=== PATIENT | female | born 1955 | race Caucasian/White ===

== ENCOUNTER 2020-07-11 11:53 | Emergency (ER) | payer BC ==
[2020-07-11] MEDS ORDERED: Ativan 2 MG/1 ML VIAL IV ONE (12:09)
[2020-07-11] MEDS ORDERED: VASOTEC I.V. 2.5 MG IV ONE ×2 (12:09→12:19)
[2020-07-11] MEDS ORDERED: Sodium Chloride 0.9% 1000 ML 1,000 ML IV SCH (12:15)
[2020-07-11] MEDS ORDERED: Ativan 2 MG/1 ML VIAL ONE (12:19)
[2020-07-11] MEDS ORDERED: Sodium Chloride 0.9% 1000 ML 1,000 ML ONE (12:19)
--- NOTE | 2020-07-11 12:38 | ERPHSYRPT ---
- History of Present Illness Time Seen by Provider: 07/11/20 12:37 Source: patient, family Exam Limitations: no limitations Patient Subjective Stated Complaint: HTN Triage Nursing Assessment: Patient ambulated back to ED and transferred self to bed. Patient A+O 3. Patient's skin pink, warm and dry. Patient complains of HTN. Patient states she has been feeling "off" for about one week. Patient states she has been monitoring her blood pressure and it has been high. Patient states this morning her blood pressure has been the highest today 175/108. Patient denies pain or discomfort. Patient's lungs clear a/p stef. No edema. Heart tones audible. Physician History: Patient complains of HTN. Patient states she has been feeling "off" for about one week. Patient states she has been monitoring her blood pressure and it has been high. Patient states this morning her blood pressure has been the highest today 175/108. Patient denies pain or discomfort Timing/Duration: day(s) Activities at Onset: none Severity of Pain-Current: none Modifying Factors: Improves With: nothing Nitro Today/Relief: no nitro taken today Aspirin Treatment Today: no aspirin today Associated Symptoms: denies symptoms Allergies/Adverse Reactions: No Known Drug Allergies Allergy (Unverified 07/11/20 12:00) Hx Influenza Vaccination/Date Given: No Hx Pneumococcal Vaccination/Date Given: No Immunizations Up to Date: Yes Travel Risk - International Travel Have you traveled outside of the country in past 3 weeks: No - Coronavirus Screening Are you exhibiting any of the following symptoms?: No Close contact with a COVID-19 positive Pt in past 14-21 Days: No - Review of Systems Constitutional: No Fever, No Chills Eyes: No Symptoms Ears, Nose, & Throat: No Symptoms Respiratory: No Cough, No Dyspnea Cardiac: No Chest Pain, No Edema, No Syncope Abdominal/Gastrointestinal: No Abdominal Pain, No Nausea, No Vomiting, No Diarrhea Genitourinary Symptoms: No Dysuria Musculoskeletal: No Back Pain, No Neck Pain Skin: No Rash Neurological: No Dizziness, No Focal Weakness, No Sensory Changes Psychological: No Symptoms Endocrine: No Symptoms All Other Systems: Reviewed and Negative - Past Medical History Pertinent Past Medical History: No Neurological History: No Pertinent History ENT History: No Pertinent History Cardiac History: No Pertinent History Respiratory History: No Pertinent History Endocrine Medical History: No Pertinent History Musculoskeletal History: No Pertinent History GI Medical History: No Pertinent History History: No Pertinent History Psycho-Social History: No Pertinent History Female Reproductive Disorders: No Pertinent History - Past Surgical History Past Surgical History: No Neuro Surgical History: No Pertinent History Cardiac: No Pertinent History Respiratory: No Pertinent History Gastrointestinal: No Pertinent History Genitourinary: No Pertinent History Musculoskeletal: No Pertinent History Female Surgical History: No Pertinent History - Social History Smoking Status: Former smoker Exposure to second hand smoke: No Drug Use: none Patient Lives Alone: No - Nursing Vital Signs Nursing Vital Signs: Initial Vital Signs Pulse Rate 91 H 07/11/20 12:03 Respiratory Rate 18 07/11/20 12:03 Blood Pressure 213/114 07/11/20 12:03 O2 Sat by Pulse Oximetry 97 07/11/20 12:03 Pain Scale Pain Intensity 0 - Physical Exam General Appearance: no apparent distress, alert Eye Exam: PERRL/EOMI, eyes nml inspection Ears, Nose, Throat Exam: normal ENT inspection, moist mucous membranes Neck Exam: normal inspection, non-tender, supple Respiratory Exam: normal breath sounds, lungs clear, No respiratory distress Cardiovascular Exam: regular rate/rhythm, normal heart sounds, No edema Gastrointestinal/Abdomen Exam: soft, No tenderness, No mass Back Exam: normal inspection, No CVA tenderness, No vertebral tenderness Extremity Exam: normal inspection, normal range of motion Neurologic Exam: alert, oriented x 3, cooperative, normal mood/affect, nml cereb ellar function, sensation nml, No motor deficits Skin Exam: normal color, warm, dry Lymphatic Exam: No adenopathy SpO2: 97 - Course Nursing assessment & vital signs reviewed: Yes EKG Interpreted by Me: Sinus Rhythm - Radiology Exams Chest X-ray Interpretation: Reviewed by me, Negative Ordered Tests: Active Orders 24 hr Category Date Time Status Cleaner Touch Up Worker STAT Care 07/11/20 12:10 Completed EKG-ER Only STAT Care 07/11/20 12:09 Completed IV Insertion STAT Care 07/11/20 12:09 Completed Oxygen-ED Only Nasal Cannula 2 lpm Care 07/11/20 12:09 Completed CHEST 1 VIEW (PORTABLE) Stat Exams 07/11/20 12:23 Taken CBC W DIFF Stat Lab 07/11/20 12:09 Completed CMP Stat Lab 07/11/20 12:09 Completed NT PRO BNP Stat Lab 07/11/20 12:09 Completed TROPONIN Q3H Lab 07/11/20 12:15 Completed TROPONIN Q3H Lab 07/11/20 15:15 Ordered TROPONIN Q3H Lab 07/11/20 18:15 Ordered TROPONIN Q3H Lab 07/11/20 21:15 Ordered Medication Summary Discontinued Medications Generic Name Dose Route Start Last Admin Trade Name Freq PRN Reason Stop Dose Admin Enalaprilat 2.5 mg 07/11/20 12:09 07/11/20 12:23 Vasotec I.V. 2.5 Mg IV 07/11/20 12:10 2.5 mg STAT ONE Administration Enalaprilat Confirm 07/11/20 12:19 Vasotec I.V. 2.5 Mg Administered 07/11/20 12:20 Dose 2.5 mg IV .STK-MED ONE Sodium Chloride 1,000 mls @ 50 mls/hr 07/11/20 12:15 07/11/20 12:20 Sodium Chloride 0.9% 1000 Ml IV 08/10/20 12:14 50 mls/hr .Q20H ANIBAL Administration Sodium Chloride Confirm 07/11/20 12:19 Sodium Chloride 0.9% 1000 Ml Administered 07/11/20 12:20 Dose 1,000 mls @ ud .ROUTE .STK-MED ONE Lorazepam 1 mg 07/11/20 12:09 07/11/20 12:23 Ativan 2 Mg/1 Ml Vial IV 07/11/20 12:10 1 mg STAT ONE Administration Lorazepam Confirm 07/11/20 12:19 Ativan 2 Mg/1 Ml Vial Administered 07/11/20 12:20 Dose 2 mg .ROUTE .STK-MED ONE Lab/Rad Data: Laboratory Result Diagrams 07/11/20 12:09 07/11/20 12:09 Laboratory Results 07/11/20 07/11/20 07/11/20 Range/Units 12:15 12:09 12:09 WBC 4.9 (4.0-10.5) K/mm3 RBC 4.80 (4.1-5.4) M/mm3 Hgb 13.9 (12.0-16.0) gm/dl Hct 43.3 (35-47) % MCV 90.2 (78-100) fl MCH 29.0 (26-32) pg MCHC 32.1 (32-36) g/dl RDW 14.2 H (11.5-14.0) % Plt Count 148 L (150-450) K/mm3 MPV 10.8 (7.5-11.0) fl Gran % 56.7 (36.0-66.0) % Eos # (Auto) 0.02 (0-0.5) Absolute Lymphs (auto) 1.60 (1.0-4.6) Absolute Monos (auto) 0.48 (0.0-1.3) Lymphocytes % 32.7 (24.0-44.0) % Monocytes % 9.8 (0.0-12.0) % Eosinophils % 0.4 (0.00-5.0) % Basophils % 0.4 (0.0-0.4) % Absolute Granulocytes 2.77 (1.4-6.9) Basophils # 0.02 (0-0.4) Sodium 138 (137-145) mmol/L Potassium 3.8 (3.5-5.1) mmol/L Chloride 109 H (98-107) mmol/L Carbon Dioxide 23 (22-30) mmol/L Anion Gap 10.0 (5-15) MEQ/L BUN 12 (7-17) mg/dL Creatinine 0.79 (0.52-1.04) mg/dL Estimated GFR > 60.0 ML/MIN Glucose 117 H (74-106) mg/dL Calcium 9.3 (8.4-10.2) mg/dL Total Bilirubin 0.40 (0.2-1.3) mg/dL AST 48 H (14-36) U/L ALT 12 (0-35) U/L Alkaline Phosphatase 106 (38-126) U/L Troponin I < 0.012 (0.000-0.034) ng/mL NT-Pro-B Natriuret Pep 334 (0-900) pg/mL Serum Total Protein 7.0 (6.3-8.2) g/dL Albumin 4.1 (3.5-5.0) g/dL - Progress Progress: improved Air Movement: good Blood Culture(s) Obtained: No Antibiotics given: No Counseled pt/family regarding: lab results, diagnosis, need for follow-up, rad results, smoking cessation - Departure Departure Disposition: Home Clinical Impression: Asymptomatic hypertensive urgency Condition: Stable Critical Care Time: Yes Critical Care Time(excluding separately billable procedures): Critical 30-74 mins Referrals: SVETA REES MD [Primary Care Provider] - Instructions: Malignant Hypertension (DC) Additional Instructions: Discharge/Care Plan MAE CHEW was seen on 07/11/20 in the Emergency Room. The patient was counseled regarding Diagnosis,Lab results, Imaging studies, need for follow up and when to return to the Emergency Room. Prescriptions given: Discharge Note I have spoken with the patient and/or caregivers. I have explained the patient's condition, diagnosis and treatment plan based on the information available to me at this time. I have answered the patient's and/or caregiver's questions and addressed any concerns. The patient and/or caregivers have as good understanding of the patient's diagnosis, condition and treatment plan as can be expected at this point. The vital signs have been stable. The patient's condition is stable and appropriate for discharge from the emergency department. The patient will pursue further outpatient evaluation with the primary care physician or other designated or consulting physician as outlined in the discharge instructions. The patient and/or caregivers are agreeable to this plan of care and follow-up instructions have been explained in detail. The patient and/or caregivers have received these instruction. The patient/and or caregivers are aware that any significant change in condition or worsening of symptoms should prompt an immediate return to this or the closest emergency department or call 911. MAE CHEW was seen on 07/11/20 n the Emergency Room. At that time you were treated for an emergent condition, during your visit Laboratory, Radiology and/or other procedures may have been ordered. It is very important that you follow-up with your Primary Care Physician SVETA REES within the next 24-48 hours to review your Emergency Room visit and the final results of testing that was ordered. Some test results such as Urine Cultures, Blood Cultures, and other cultures if ordered will not be finalized for 24-48 hours. If you do not have a Primary Care Provider please call the medical records department at [phone] ext [phone] to obtain a copy of your results or you may sign into our patient portal to obtain these results by visiting us @ [email or web address] and completing the following steps: 1. Click on the Patient Portal link 2. Click the Patient Self Enrollment Link to complete the enrollment form and entering your 3. Once the enrollment form is completed you will receive an email with a temporary ID and password at the email address you provided. 4. Next choose a user name and password. Your user name must be at least 4 characters long and your password must be at least 4 characters long. 5. Choose a security question from the list and provide your answer to the question. If you already have signed into the Health Portal you may access your Health Care Information 16/04 by the following steps: 1. Login to our website @ [email or web address] 2. Enter your original user name and password. FAQS The [facility] Health Portal is an online tool that contains your Lab Results, Radiology Reports, Visit History, Discharge Instructions and Health Summary Lab and Radiology Results will not be available for 72 hours on the portal. The Portal is a secure site, passwords are encryted and URLs are re-written so they cannot be copied and pasted. You and authorized family members are the only ones who can access your Portal. Also there is a timeout feature that protects your information if you leave the Portal page open. If you have technical difficulty please use the Contact Us link on the page this will allow you to submit any questions you have regarding the Portal or you may contact the Medical Record Department at [phone]. Prescriptions: Lisinopril/Hydrochlorothiazide [Lisinopril-Hctz 20-12.5 mg Tab] 1 each PO DAILY #30 tablet
[2020-07-11 12:55] LABS: Absolute Neutrophil Ct (ANC) 2.77 (1.4-6.9); BASOPHIL % 0.4 % (0.0-0.4); Basophil (Absolute #) 0.02 (0-0.4); Eosinophil % 0.4 % (0.00-5.0); Eosinophil (Absolute #) 0.02 (0-0.5); Hematocrit 43.3 % (35-47); Hemoglobin 13.9 gm/dl (12.0-16.0); Lymphocytes % 32.7 % (24.0-44.0); Mean Cell Volume 90.2 fl (78-100); Mean Corpuscular Hgb Concent. 32.1 g/dl (32-36); Mean Platelet Volume 10.8 fl (7.5-11.0); Monocyte (Absolute #) 0.48 (0.0-1.3); Monocytes % 9.8 % (0.0-12.0); Neutrophil % 56.7 % (36.0-66.0); Platelet Count 148 K/mm3 (150-450); Red Cell Distribution Width 14.2 % (11.5-14.0); White Blood Count 4.9 K/mm3 (4.0-10.5)
[2020-07-11 13:15] LABS: ALBUMIN 4.1 g/dL (3.5-5.0); ALKALINE PHOSPHATASE 106 U/L (38-126); BLOOD UREA NITROGEN 12 mg/dL (7-17); CHLORIDE 109 mmol/L (98-107); Calcium 9.3 mg/dL (8.4-10.2); Carbon Dioxide 23 mmol/L (22-30); Creatinine 1 0.79 mg/dL (0.52-1.04); EST GLOMERULAR FILTRATION RATE > 60.0 ML/MIN; Glucose 117 mg/dL (74-106); NT PRO BNP 334 pg/mL (0-900); Potassium 3.8 mmol/L (3.5-5.1); SGOT/AST 48 U/L (14-36); SGPT/ALT 12 U/L (0-35); SODIUM 138 mmol/L (137-145)
[2020-07-11 13:43] VITALS: BP 130/92; PULSE 82
[2020-07-11 14:20] VITALS: O2SAT 97
--- NOTE | 2020-07-11 20:34 | XRAY ---
Indication: Weakness. Hypertension. Comparison: None Portable chest hyperinflated with tiny calcified granulomas bilaterally. No focal infiltrate, consolidation, or large effusion. Heart is not enlarged. Bony thorax intact. Impression: Nonacute hyperinflated chest with old granulomatous disease.
== END 2020-07-11 13:56 | disposition home or self-care (01) ==
LOC: ED 11:53
DX: I16.0 Hypertensive urgency (principal)
CPT/HCPCS: 36000; 36415; 71045; 80053; 83880; 84484; 85025; 93005; 93041; 96360; 96374; 96375; 99284; 99291; J2060

== ENCOUNTER 2020-11-13 17:40 | Emergency (ER) | payer BC ==
[2020-11-13] MEDS ORDERED: NORVASC 5 MG PO ONE (18:07)
[2020-11-13] MEDS ORDERED: Catapres 0.1 MG PO ONE (18:07)
[2020-11-13] MEDS ORDERED: NORVASC 5 MG ONE ×2 (18:13→19:38)
[2020-11-13] MEDS ORDERED: Catapres 0.1 MG ONE (18:13)
[2020-11-13 18:16] LABS: Absolute Neutrophil Ct (ANC) 6.29 (1.4-6.9); BASOPHIL % 0.7 % (0.0-0.4); Basophil (Absolute #) 0.06 (0-0.4); Eosinophil % 1.7 % (0.00-5.0); Eosinophil (Absolute #) 0.16 (0-0.5); Hematocrit 43.2 % (35-47); Hemoglobin 13.5 gm/dl (12.0-16.0); Lymphocyte (Absolute #) 2.19 (1.0-4.6); Lymphocytes % 23.8 % (24.0-44.0); Mean Cell Volume 92.3 fl (78-100); Mean Corpuscular Hemoglobin 28.8 pg (26-32); Mean Corpuscular Hgb Concent. 31.3 g/dl (32-36); Mean Platelet Volume 10.5 fl (7.5-11.0); Monocyte (Absolute #) 0.49 (0.0-1.3); Monocytes % 5.3 % (0.0-12.0); Neutrophil % 68.5 % (36.0-66.0); Platelet Count 244 K/mm3 (150-450); Red Blood Count 4.68 M/mm3 (4.1-5.4); Red Cell Distribution Width 13.7 % (11.5-14.0); White Blood Count 9.2 K/mm3 (4.0-10.5)
[2020-11-13 18:21] LABS: Appearance SLIGHTLY CLOUDY (CLEAR); Bacteria RARE /HPF (NEGATIVE); Bilirubin NEGATIVE (NEGATIVE); Blood SMALL Ery/ul (0-5); Epithelial Cells RARE /HPF (FEW); Glucose NEGATIVE (NEGATIVE); Ketones NEGATIVE (NEGATIVE); Leukocyte Esterase LARGE (NEGATIVE); Nitrite NEGATIVE (NEGATIVE); Protein,Urine Dip NEGATIVE (Negative); Specific Gravity 1.002 (1.005-1.025); Urobilinogen NEGATIVE mg/dL (0-1); WBC 51-100 /HPF (0-5)
[2020-11-13 18:32] LABS: ALBUMIN 4.4 g/dL (3.5-5.0); ALKALINE PHOSPHATASE 85 U/L (38-126); AMYLASE 95 U/L (30-110); ANION GAP 12.3 MEQ/L (5-15); BLOOD UREA NITROGEN 12 mg/dL (7-17); CHLORIDE 108 mmol/L (98-107); CK-Creatinine Phosphokinase 44 U/L (30-135); Carbon Dioxide 22 mmol/L (22-30); Creatinine 1 0.94 mg/dL (0.52-1.04); EST GLOMERULAR FILTRATION RATE > 60.0 ML/MIN; Glucose 109 mg/dL (74-106); LIPASE 254 U/L (23-300); NT PRO BNP 250 pg/mL (0-900); Potassium 4.1 mmol/L (3.5-5.1); SGOT/AST 34 U/L (14-36); SGPT/ALT 10 U/L (0-35); SODIUM 139 mmol/L (137-145); Total Protein 7.2 g/dL (6.3-8.2)
[2020-11-13] MEDS ORDERED: ROCEPHIN 1 Gm-D5w 50 ml Bag** 1 G/50 ML IVPB IV STA (18:43)
[2020-11-13] MEDS ORDERED: ROCEPHIN 1 Gm-D5w 50 ml Bag** 1 G/50 ML IVPB IV ONE (18:45)
--- NOTE | 2020-11-13 19:25 | ERPHSYRPT ---
- History of Present Illness Time Seen by Provider: 11/13/20 18:00 Source: patient Exam Limitations: no limitations Patient Subjective Stated Complaint: Pt has not been feeling "normal" today, BP has been increasing all day and she has doubled her bp meds Triage Nursing Assessment: Pt brought to the ER by her , hypertensive, no other health issues, denies headache, denies any pain, pulses normal, skin n/w/d Physician History: Patient is a 65-year-old white female with a long history of hypertension who presents with elevated blood pressure readings for approximately 24 hours. Her initial blood pressure problems started in June of last year when she came into the ER and was found to have extremely elevated pressures she was started on lisinopril and had done fairly well although her blood pressure has fluctuated according to her home record over a fairly wide range. She denies any headache chest pain shortness of breath or any other problems no edema no change in urinary output. No change in body weight. Timing/Duration: day(s) (2) Activities at Onset: none Severity of Pain-Max: none Severity of Pain-Current: none Modifying Factors: Improves With: nothing Nitro Today/Relief: no nitro taken today Aspirin Treatment Today: no aspirin today Associated Symptoms: denies symptoms Allergies/Adverse Reactions: No Known Drug Allergies Allergy (Verified 11/13/20 18:10) Home Medications: Lisinopril 20 mg [Zestril 20 MG] 20 mg PO DAILY 11/13/20 [History] Hx Influenza Vaccination/Date Given: No Hx Pneumococcal Vaccination/Date Given: No Travel Risk - International Travel Have you traveled outside of the country in past 3 weeks: No - Coronavirus Screening Are you exhibiting any of the following symptoms?: No Close contact with a COVID-19 positive Pt in past 14-21 Days: No - Review of Systems Constitutional: No Fever, No Chills Eyes: No Symptoms Ears, Nose, & Throat: No Symptoms Respiratory: No Cough, No Dyspnea Cardiac: No Chest Pain, No Edema, No Syncope Abdominal/Gastrointestinal: No Abdominal Pain, No Nausea, No Vomiting, No Diarrhea Genitourinary Symptoms: No Dysuria Musculoskeletal: No Back Pain, No Neck Pain Skin: No Rash Neurological: No Dizziness, No Focal Weakness, No Sensory Changes Psychological: No Symptoms Endocrine: No Symptoms All Other Systems: Reviewed and Negative - Past Medical History Pertinent Past Medical History: Yes Neurological History: No Pertinent History ENT History: No Pertinent History Cardiac History: No Pertinent History, Hypertension Respiratory History: No Pertinent History Endocrine Medical History: No Pertinent History Musculoskeletal History: No Pertinent History GI Medical History: No Pertinent History History: No Pertinent History Psycho-Social History: No Pertinent History Female Reproductive Disorders: No Pertinent History - Past Surgical History Past Surgical History: No Neuro Surgical History: No Pertinent History Cardiac: No Pertinent History Respiratory: No Pertinent History Gastrointestinal: No Pertinent History Genitourinary: No Pertinent History Musculoskeletal: No Pertinent History Female Surgical History: No Pertinent History - Social History Smoking Status: Current some day smoker Exposure to second hand smoke: No Drug Use: none Patient Lives Alone: No - Nursing Vital Signs Nursing Vital Signs: Initial Vital Signs Temperature 98.0 F 11/13/20 17:50 Pulse Rate 72 11/13/20 17:50 Respiratory Rate 13 11/13/20 17:50 Blood Pressure 204/108 11/13/20 17:50 O2 Sat by Pulse Oximetry 98 11/13/20 17:50 Pain Scale Pain Intensity 0 - Physical Exam General Appearance: no apparent distress, alert Eye Exam: PERRL/EOMI, eyes nml inspection Ears, Nose, Throat Exam: normal ENT inspection, moist mucous membranes Neck Exam: normal inspection, non-tender, supple Respiratory Exam: normal breath sounds, lungs clear, No respiratory distress Cardiovascular Exam: regular rate/rhythm, normal heart sounds, No edema Gastrointestinal/Abdomen Exam: soft, No tenderness, No mass Back Exam: normal inspection, No CVA tenderness, No vertebral tenderness Extremity Exam: normal inspection, normal range of motion Neurologic Exam: alert, oriented x 3, cooperative, normal mood/affect, nml cerebellar function, sensation nml, No motor deficits Skin Exam: normal color, warm, dry Lymphatic Exam: No adenopathy SpO2: 95 - Course Nursing assessment & vital signs reviewed: Yes EKG Interpreted by Me: RATE, NORMAL AXIS, NORMAL INTERVALS, Non-specific ST Changes - Radiology Exams Chest X-ray Interpretation: Interpreted by me, Negative Ordered Tests: Active Orders 24 hr Category Date Time Status EKG-ER Only STAT Care 11/13/20 18:08 Active CHEST 1 VIEW (PORTABLE) Stat Exams 11/13/20 18:08 Taken AMYLASE Stat Lab 11/13/20 18:12 Completed CBC W DIFF Stat Lab 11/13/20 18:12 Completed CK-Creatinine Phosphokinase Stat Lab 11/13/20 18:12 Completed CMP Stat Lab 11/13/20 18:12 Completed CULTURE,URINE Stat Lab 11/13/20 18:10 Received LIPASE Stat Lab 11/13/20 18:12 Completed Lactic Acid Stat Lab 11/13/20 18:08 Completed MAGNESIUM Stat Lab 11/13/20 18:12 Completed NT PRO BNP Stat Lab 11/13/20 18:12 Completed TROPONIN Q3H Lab 11/13/20 18:12 Completed TROPONIN Q3H Lab 11/13/20 21:15 Ordered TROPONIN Q3H Lab 11/14/20 00:15 Ordered TROPONIN Q3H Lab 11/14/20 03:15 Ordered TROPONIN Q3H Lab 11/14/20 06:15 Ordered UA W/RFX UR CULTURE Stat Lab 11/13/20 18:10 Completed Medication Summary Discontinued Medications Generic Name Dose Route Start Last Admin Trade Name Freq PRN Reason Stop Dose Admin Amlodipine Besylate 5 mg 11/13/20 18:07 11/13/20 18:14 Norvasc 5 Mg PO 11/13/20 18:08 5 mg STAT ONE Administration Amlodipine Besylate Confirm 11/13/20 18:13 Norvasc 5 Mg Administered 11/13/20 18:14 Dose 5 mg .ROUTE .STK-MED ONE Clonidine 0.1 mg 11/13/20 18:07 11/13/20 18:14 Catapres 0.1 Mg PO 11/13/20 18:08 0.1 mg STAT ONE Administration Clonidine Confirm 11/13/20 18:13 Catapres 0.1 Mg Administered 11/13/20 18:14 Dose 0.1 mg .ROUTE .STK-MED ONE Ceftriaxone Sodium/Dextrose 1 g in 50 mls @ 100 mls/hr 11/13/20 18:43 11/13/20 18:46 Rocephin 1 Gm-D5w 50 Ml Bag IV 11/13/20 19:12 100 ml/hr STAT STA 100 mls/hr Administration Ceftriaxone Sodium/Dextrose Confirm 11/13/20 18:45 Rocephin 1 Gm-D5w 50 Ml Bag Administered 11/13/20 18:46 Dose 1 g in 50 mls @ ud IV .STK-MED ONE Lab/Rad Data: Laboratory Result Diagrams 11/13/20 18:12 11/13/20 18:12 Laboratory Results 11/13/20 11/13/20 11/13/20 Range/Units 18:12 18:12 18:12 WBC 9.2 (4.0-10.5) K/mm3 RBC 4.68 (4.1-5.4) M/mm3 Hgb 13.5 (12.0-16.0) gm/dl Hct 43.2 (35-47) % MCV 92.3 (78-100) fl MCH 28.8 (26-32) pg MCHC 31.3 L (32-36) g/dl RDW 13.7 (11.5-14.0) % Plt Count 244 (150-450) K/mm3 MPV 10.5 (7.5-11.0) fl Gran % 68.5 H (36.0-66.0) % Eos # (Auto) 0.16 (0-0.5) Absolute Lymphs (auto) 2.19 (1.0-4.6) Absolute Monos (auto) 0.49 (0.0-1.3) Lymphocytes % 23.8 L (24.0-44.0) % Monocytes % 5.3 (0.0-12.0) % Eosinophils % 1.7 (0.00-5.0) % Basophils % 0.7 (0.0-0.4) % Absolute Granulocytes 6.29 (1.4-6.9) Basophils # 0.06 (0-0.4) Sodium 139 (137-145) mmol/L Potassium 4.1 (3.5-5.1) mmol/L Chloride 108 H (98-107) mmol/L Carbon Dioxide 22 (22-30) mmol/L Anion Gap 12.3 (5-15) MEQ/L BUN 12 (7-17) mg/dL Creatinine 0.94 (0.52-1.04) mg/dL Estimated GFR > 60.0 ML/MIN Glucose 109 H (74-106) mg/dL Lactic Acid (0.4-2.0) Calcium 10.0 (8.4-10.2) mg/dL Magnesium 2.0 (1.6-2.3) mg/dL Total Bilirubin 0.30 (0.2-1.3) mg/dL AST 34 (14-36) U/L ALT 10 (0-35) U/L Alkaline Phosphatase 85 (38-126) U/L Creatine Kinase 44 (30-135) U/L Troponin I < 0.012 (0.000-0.034) ng/mL NT-Pro-B Natriuret Pep 250 (0-900) pg/mL Serum Total Protein 7.2 (6.3-8.2) g/dL Albumin 4.4 (3.5-5.0) g/dL Amylase 95 (30-110) U/L Lipase 254 (23-300) U/L Urine Color (YELLOW) Urine Appearance (CLEAR) Urine pH (5-6) Ur Specific [place] (1.005-1.025) Urine Protein (Negative) Urine Ketones (NEGATIVE) Urine Blood (0-5) Ethan/ul Urine Nitrite (NEGATIVE) Urine Bilirubin (NEGATIVE) Urine Urobilinogen (0-1) mg/dL Ur Leukocyte Esterase (NEGATIVE) Urine WBC (Auto) (0-5) /HPF Urine RBC (Auto) (0-2) /HPF U Epithel Cells (Auto) (FEW) /HPF Urine Bacteria (Auto) (NEGATIVE) /HPF Urine Culture Reflexed (NO) Urine Glucose (NEGATIVE) mg/dL 11/13/20 11/13/20 Range/Units 18:10 18:08 WBC (4.0-10.5) K/mm3 RBC (4.1-5.4) M/mm3 Hgb (12.0-16.0) gm/dl Hct (35-47) % MCV (78-100) fl MCH (26-32) pg MCHC (32-36) g/dl RDW (11.5-14.0) % Plt Count (150-450) K/mm3 MPV (7.5-11.0) fl Gran % (36.0-66.0) % Eos # (Auto) (0-0.5) Absolute Lymphs (auto) (1.0-4.6) Absolute Monos (auto) (0.0-1.3) Lymphocytes % (24.0-44.0) % Monocytes % (0.0-12.0) % Eosinophils % (0.00-5.0) % Basophils % (0.0-0.4) % Absolute Granulocytes (1.4-6.9) Basophils # (0-0.4) Sodium (137-145) mmol/L Potassium (3.5-5.1) mmol/L Chloride (98-107) mmol/L Carbon Dioxide (22-30) mmol/L Anion Gap (5-15) MEQ/L BUN (7-17) mg/dL Creatinine (0.52-1.04) mg/dL Estimated GFR ML/MIN Glucose (74-106) mg/dL Lactic Acid 1.4 (0.4-2.0) Calcium (8.4-10.2) mg/dL Magnesium (1.6-2.3) mg/dL Total Bilirubin (0.2-1.3) mg/dL AST (14-36) U/L ALT (0-35) U/L Alkaline Phosphatase (38-126) U/L Creatine Kinase (30-135) U/L Troponin I (0.000-0.034) ng/mL NT-Pro-B Natriuret Pep (0-900) pg/mL Serum Total Protein (6.3-8.2) g/dL Albumin (3.5-5.0) g/dL Amylase (30-110) U/L Lipase (23-300) U/L Urine Color STRAW (YELLOW) Urine Appearance SLIGHTLY CLOUDY (CLEAR) Urine pH 6.0 (5-6) Ur Specific [place] 1.002 (1.005-1.025) Urine Protein NEGATIVE (Negative) Urine Ketones NEGATIVE (NEGATIVE) Urine Blood SMALL (0-5) Ethan/ul Urine Nitrite NEGATIVE (NEGATIVE) Urine Bilirubin NEGATIVE (NEGATIVE) Urine Urobilinogen NEGATIVE (0-1) mg/dL Ur Leukocyte Esterase LARGE (NEGATIVE) Urine WBC (Auto) 51-100 (0-5) /HPF Urine RBC (Auto) 3-5 (0-2) /HPF U Epithel Cells (Auto) RARE (FEW) /HPF Urine Bacteria (Auto) RARE (NEGATIVE) /HPF Urine Culture Reflexed YES (NO) Urine Glucose NEGATIVE (NEGATIVE) mg/dL - Progress Progress: improved Air Movement: good Blood Culture(s) Obtained: No Antibiotics given: No - Departure Departure Disposition: Home Clinical Impression: Asymptomatic hypertensive urgency, Urinary tract infection Condition: Stable Critical Care Time: No Referrals: SVETA REES MD [Primary Care Provider] - Instructions: Malignant Hypertension (DC) Prescriptions: Cephalexin Mh 500 mg [Keflex 500 mg] 500 mg PO TID #21 capsule Amlodipine Besylate 5 mg [Norvasc 5 mg] 10 mg PO DAILY 30 Days #30 tablet
[2020-11-13 19:36] VITALS: BP 148/96; PULSE 67; O2SAT 96
[2020-11-13] MEDS ORDERED: KEFLEX 500 MG ONE (19:38)
--- NOTE | 2020-11-13 19:42 | XRAY ---
Indication: Weakness. Comparison: July 11. Portable chest unchanged again hyperinflated with scattered tiny calcified granulomas bilaterally. Remaining heart and lungs unremarkable. Bony thorax intact. No new/acute findings.
[2020-11-14] MEDS ORDERED: KEFLEX 500 MG PO ONE (08:00)
[2020-11-14] MEDS ORDERED: NORVASC 5 MG PO SCH (10:00)
== END 2020-11-13 19:53 | disposition home or self-care (01) ==
LOC: ED 17:40
DX: I16.0 Hypertensive urgency (principal); N39.0 Urinary tract infection, site not specified; I10 Essential (primary) hypertension; Z79.899 Other long term (current) drug therapy
CPT/HCPCS: 36000; 36415; 71045; 80053; 81001; 82150; 82550; 83605; 83690; 83735; 83880; 84484; 85025; 87086; 93005; 99284; J0696; A9270-GY

== ENCOUNTER 2020-11-15 04:58 | Emergency (ER) | payer BC ==
[2020-11-15 05:27] LABS: Absolute Neutrophil Ct (ANC) 3.71 (1.4-6.9); BASOPHIL % 0.6 % (0.0-0.4); Basophil (Absolute #) 0.04 (0-0.4); Eosinophil % 3.3 % (0.00-5.0); Eosinophil (Absolute #) 0.22 (0-0.5); Hematocrit 44.5 % (35-47); Hemoglobin 13.8 gm/dl (12.0-16.0); Lymphocyte (Absolute #) 2.12 (1.0-4.6); Lymphocytes % 32.1 % (24.0-44.0); Mean Cell Volume 92.5 fl (78-100); Mean Corpuscular Hemoglobin 28.7 pg (26-32); Mean Platelet Volume 10.5 fl (7.5-11.0); Monocyte (Absolute #) 0.51 (0.0-1.3); Monocytes % 7.7 % (0.0-12.0); Neutrophil % 56.3 % (36.0-66.0); Platelet Count 233 K/mm3 (150-450); Red Blood Count 4.81 M/mm3 (4.1-5.4); Red Cell Distribution Width 13.7 % (11.5-14.0); White Blood Count 6.6 K/mm3 (4.0-10.5)
--- NOTE | 2020-11-15 05:31 | ERPHSYRPT ---
- History of Present Illness Source: patient Exam Limitations: no limitations Patient Subjective Stated Complaint: pt states she woke up this morning to use the restroom and just didn't feel right. pt states that she has chest tightness Triage Nursing Assessment: pt came into the er via wheelchair; pt is axo x4; pt is anxious; c/o chest tightness; pt states that she was here sunday for high blood pressure; pt states that she was started on amlopidine; pt states she has no chest pain but does have epigastric tightness; heart sound is clear; normal apical pulse of 86 bpm; normal radial pulses; normal pedal pulses; no edema present; clear lung sounds in all lobes; active bowel sounds in all quads; hypertensive Associated Symptoms: chest pain, No nausea, No vomiting, No shortness of breath, No cough, No chills Hx Tetanus, Diphtheria Vaccination/Date Given: No (unknown) Hx Influenza Vaccination/Date Given: No Hx Pneumococcal Vaccination/Date Given: No <JAYMIE OKEEFE - Last Filed: 11/15/20 06:54> <SAURABH CARDONA - Last Filed: 11/15/20 08:58> - History of Present Illness Time Seen by Provider: 11/15/20 05:05 Physician History: The patient is a 65-year-old female with a past medical history significant for hypertension and cigarette smoking presents with a chief complaint of hypertension and chest tightness. She states she awoke this morning around 2 AM and "did not feel right" and checked her blood pressure and was given systolic blood pressure readings in the 170s like she did this past Sunday when she came to the emergency department for her hypertension. She stated she started to feel chest tightness shortly afterwards then decided to come to the emergency department when her blood pressure reading come back down. Chest tightness was located around her epigastrum, non-radiating, and mild She reportedly was seen in the emergency department on November 13 and was started on Norvasc in conjunction with her lisinopril and was instructed to follow-up with her primary care provider. Her urine also appeared to show evidence of UTI and she was empirically started on Keflex. She denies shortness of breath, nausea, diaphoresis, or pain or jaw pain. She currently has no chest discomfort at this time. The patient has not taken her lisinopril or amlodipine this morning and is supposed to take it this morning upon awaking. (JAYMIE OKEEFE) Allergies/Adverse Reactions: No Known Drug Allergies Allergy (Verified 11/13/20 18:10) Home Medications: Lisinopril 20 mg [Zestril 20 MG] 20 mg PO DAILY 11/13/20 [History] Travel Risk - International Travel Have you traveled outside of the country in past 3 weeks: No - Coronavirus Screening Are you exhibiting any of the following symptoms?: No Close contact with a COVID-19 positive Pt in past 14-21 Days: No <JAYMIE OKEEFE - Last Filed: 11/15/20 06:54> - Review of Systems Constitutional: No Fever Eyes: No Symptoms Ears, Nose, & Throat: No Symptoms Respiratory: No Cough, No Cyanosis, No Dyspnea Cardiac: Chest Pain, Other (HTN) Abdominal/Gastrointestinal: No Abdominal Pain, No Nausea, No Vomiting Musculoskeletal: No Symptoms Skin: No Symptoms Neurological: No Symptoms, No Headache All Other Systems: Reviewed and Negative <JAYMIE OKEEFE - Last Filed: 11/15/20 06:54> - Past Medical History Pertinent Past Medical History: Yes Neurological History: No Pertinent History ENT History: No Pertinent History Cardiac History: No Pertinent History, Hypertension Respiratory History: No Pertinent History Endocrine Medical History: No Pertinent History Musculoskeletal History: No Pertinent History GI Medical History: No Pertinent History History: No Pertinent History Psycho-Social History: No Pertinent History Female Reproductive Disorders: No Pertinent History - Past Surgical History Past Surgical History: No Neuro Surgical History: No Pertinent History Cardiac: No Pertinent History Respiratory: No Pertinent History Gastrointestinal: No Pertinent History Genitourinary: No Pertinent History Musculoskeletal: No Pertinent History Female Surgical History: No Pertinent History - Social History Smoking Status: Current some day smoker Exposure to second hand smoke: No Drug Use: none Patient Lives Alone: No <JAYMIE OKEEFE - Last Filed: 11/15/20 06:54> - Physical Exam General Appearance: no apparent distress, alert Eye Exam: PERRL/EOMI Ears, Nose, Throat Exam: No pharyngeal erythema, No tonsillar exudate Neck Exam: normal inspection, supple Respiratory Exam: normal breath sounds, lungs clear, airway intact, No respiratory distress Cardiovascular Exam: regular rate/rhythm, normal heart sounds, normal peripheral pulses, capillary refill <2 sec, other (No asymmetic lower extremity calf tenderness, edema, or erythema to suggest DVT), No murmur, No friction rub, No gallop Gastrointestinal/Abdomen Exam: soft, No tenderness, No distention, No mass Pelvic Exam: not done Back Exam: normal inspection Extremity Exam: normal inspection Neurologic Exam: alert, oriented x 3, cooperative Skin Exam: normal color, warm, dry, No rash, No petechiae SpO2 Interpretation: normal SpO2: 96 O2 Delivery: Room Air <JAYMIE OKEEFE - Last Filed: 11/15/20 06:54> - Nursing Vital Signs Nursing Vital Signs: Initial Vital Signs Temperature 97.4 F 11/15/20 05:01 Pulse Rate 87 11/15/20 05:01 Respiratory Rate 11/15/20 05:01 Blood Pressure 171/100 11/15/20 05:01 O2 Sat by Pulse Oximetry 96 11/15/20 05:01 Pain Scale Pain Intensity 0 - Course Nursing assessment & vital signs reviewed: Yes EKG Interpreted by Me: RATE, Sinus Rhythm, NORMAL AXIS, NORMAL INTERVALS, Non- specific ST Changes, Other (Nonspecific T wave abnormalities noted in the anterior leads, [place] interval 176 ms, QRS duration 71 ms, QT/QTc 394/420 msNo evidence of STEMI, low voltage EKG, EKG is similar to appearance to EKG dated November 13, 2020.) - Radiology Exams Chest X-ray Interpretation: Interpreted by me, Negative (No acute cardiopulmonary process) <JAYMIE OKEEFE - Last Filed: 11/15/20 06:54> Ordered Tests: Active Orders 24 hr Category Date Time Status Scroll Saw Operator STAT Care 11/15/20 05:16 Active EKG-ER Only STAT Care 11/15/20 05:15 Active IV Insertion STAT Care 11/15/20 05:15 Active CHEST 2 VIEWS (PA AND LAT) Stat Exams 11/15/20 05:16 Completed BMP Stat Lab 11/15/20 05:25 Completed CBC W DIFF Stat Lab 11/15/20 05:25 Completed Hepatic Function Panel Stat Lab 11/15/20 05:25 Completed LIPASE Stat Lab 11/15/20 05:25 Completed TROPONIN Q3H Lab 11/15/20 05:25 Completed TROPONIN Q3H Lab 11/15/20 08:15 Completed TROPONIN Q3H Lab 11/15/20 11:30 Ordered TROPONIN Q3H Lab 11/15/20 14:30 Ordered TROPONIN Q3H Lab 11/15/20 17:30 Ordered Lab/Rad Data: Laboratory Result Diagrams 11/15/20 05:25 11/15/20 05:25 Laboratory Results 11/15/20 11/15/20 11/15/20 Range/Units 08:15 05:25 05:25 WBC (4.0-10.5) K/mm3 RBC (4.1-5.4) M/mm3 Hgb (12.0-16.0) gm/dl Hct (35-47) % MCV (78-100) fl MCH (26-32) pg MCHC (32-36) g/dl RDW (11.5-14.0) % Plt Count (150-450) K/mm3 MPV (7.5-11.0) fl Gran % (36.0-66.0) % Eos # (Auto) (0-0.5) Absolute Lymphs (auto) (1.0-4.6) Absolute Monos (auto) (0.0-1.3) Lymphocytes % (24.0-44.0) % Monocytes % (0.0-12.0) % Eosinophils % (0.00-5.0) % Basophils % (0.0-0.4) % Absolute Granulocytes (1.4-6.9) Basophils # (0-0.4) Sodium 139 (137-145) mmol/L Potassium 4.1 (3.5-5.1) mmol/L Chloride 108 H (98-107) mmol/L Carbon Dioxide 25 (22-30) mmol/L Anion Gap 10.7 (5-15) MEQ/L BUN 12 (7-17) mg/dL Creatinine 0.95 (0.52-1.04) mg/dL Estimated GFR > 60.0 ML/MIN Glucose 95 (74-106) mg/dL Calcium 10.0 (8.4-10.2) mg/dL Total Bilirubin 0.60 (0.2-1.3) mg/dL Direct Bilirubin 0 (0.0-0.4) mg/dL AST 34 (14-36) U/L ALT 8 (0-35) U/L Alkaline Phosphatase 88 (38-126) U/L Troponin I < 0.012 < 0.012 (0.000-0.034) ng/mL Serum Total Protein 7.3 (6.3-8.2) g/dL Albumin 4.3 (3.5-5.0) g/dL Lipase 250 (23-300) U/L 11/15/20 Range/Units 05:25 WBC 6.6 (4.0-10.5) K/mm3 RBC 4.81 (4.1-5.4) M/mm3 Hgb 13.8 (12.0-16.0) gm/dl Hct 44.5 (35-47) % MCV 92.5 (78-100) fl MCH 28.7 (26-32) pg MCHC 31.0 L (32-36) g/dl RDW 13.7 (11.5-14.0) % Plt Count 233 (150-450) K/mm3 MPV 10.5 (7.5-11.0) fl Gran % 56.3 (36.0-66.0) % Eos # (Auto) 0.22 (0-0.5) Absolute Lymphs (auto) 2.12 (1.0-4.6) Absolute Monos (auto) 0.51 (0.0-1.3) Lymphocytes % 32.1 (24.0-44.0) % Monocytes % 7.7 (0.0-12.0) % Eosinophils % 3.3 (0.00-5.0) % Basophils % 0.6 (0.0-0.4) % Absolute Granulocytes 3.71 (1.4-6.9) Basophils # 0.04 (0-0.4) Sodium (137-145) mmol/L Potassium (3.5-5.1) mmol/L Chloride (98-107) mmol/L Carbon Dioxide (22-30) mmol/L Anion Gap (5-15) MEQ/L BUN (7-17) mg/dL Creatinine (0.52-1.04) mg/dL Estimated GFR ML/MIN Glucose (74-106) mg/dL Calcium (8.4-10.2) mg/dL Total Bilirubin (0.2-1.3) mg/dL Direct Bilirubin (0.0-0.4) mg/dL AST (14-36) U/L ALT (0-35) U/L Alkaline Phosphatase (38-126) U/L Troponin I (0.000-0.034) ng/mL Serum Total Protein (6.3-8.2) g/dL Albumin (3.5-5.0) g/dL Lipase (23-300) U/L - Progress Counseled pt/family regarding: lab results, diagnosis, need for follow-up, rad results <JAYMIE OKEEFE - Last Filed: 11/15/20 06:54> - Progress Discussed with Dr.: Marsha <SAURABH CARDONA - Last Filed: 11/15/20 08:58> - Progress Progress Note: 11/15/20 05:35 I reviewed the patient's EMR the nurse managed to find an old EKG and paperwork that was yet to be filed from November 13, 2020 which had a copy of her EKG during that ED presentation. Her EKG tonight appears similar in appearance to the EKG obtained on the . I also have the patient take her lisinopril and amlodipine. I will obtain labs to include cardiac markers, chest x-ray. Honestly, the patient appears to be anxious and keeps staring at the monitor screen and looking at her blood pressure reading and did this multiple times while I was examining her. I think if her work-up is negative she can be discharged home to follow-up with her primary care provider today as she reportedly was going to do for further e valuation and management. 11/15/20 05:41 Nontoxic in appearance. Low gestalt for PE, aortic dissection, PTX, PNA. Patient's BP is not in a range that needs to be acutely managed with IV meds and I feel her oral medications will suffice for now. No WHITFIELD to suggest ICH and low suspicion for PRES. HEART Score 3. I believe if you serial troponins are wnl, she can be discharged home to follow-up with her PCP for further evaluation and management. 11/15/20 06:28 Initial troponin wnl. Will get a second troponin and if wnl, I think the patient can be discharged home to f/u with her PCP for possible OP stress test at PCP discretion. 11/15/20 06:42 Blood pressure reassessed to be at 154/97 mmHg. Patient care will be transitioned to Dr. Cardona at 0700 pending second troponin and discussion with PCP for outpatient follow-up if 2nd troponin wnl and patient discharged. (JAYMIE OKEEFE) 11/15/20 08:56 Medical decision making: This patient was reviewed with Dr. watkins, the patient's primary care physician. The patient is no longer having any chest pain. Blood pressure is in a reasonable range. He stated that we can discharge her to home. She is to call his office today to make an appointment with his office for tomorrow. (SAURABH CARDONA) - Departure Departure Disposition: Home <JAYMIE OKEEFE - Last Filed: 11/15/20 06:54> - Departure Critical Care Time: No <SAURABH CARDONA - Last Filed: 11/15/20 08:58> - Departure Clinical Impression: Hypertension, Chest pain, Tobacco abuse Condition: Stable Referrals: SVETA WATKINS MD [Primary Care Provider] - Instructions: High Blood Pressure in Adults, Quitting Smoking for Older Adults, Chest Pain (DC) Additional Instructions: Take all your medications as prescribed. Call your primary care doctors office today to make arrangements for follow-up appointment for tomorrow 11/16/2020
[2020-11-15 05:38] LABS: ALBUMIN 4.3 g/dL (3.5-5.0); ALKALINE PHOSPHATASE 88 U/L (38-126); ANION GAP 10.7 MEQ/L (5-15); BLOOD UREA NITROGEN 12 mg/dL (7-17); CHLORIDE 108 mmol/L (98-107); Carbon Dioxide 25 mmol/L (22-30); Creatinine 1 0.95 mg/dL (0.52-1.04); EST GLOMERULAR FILTRATION RATE > 60.0 ML/MIN; Glucose 95 mg/dL (74-106); LIPASE 250 U/L (23-300); Potassium 4.1 mmol/L (3.5-5.1); SGOT/AST 34 U/L (14-36); SGPT/ALT 8 U/L (0-35); SODIUM 139 mmol/L (137-145); Total Protein 7.3 g/dL (6.3-8.2)
[2020-11-15 05:39] LABS: Direct Bilirubin 0 mg/dL (0.0-0.4)
--- NOTE | 2020-11-15 08:54 | XRAY ---
Indication: Chest pain. Comparison: November 13, 2020. PA/lateral chest unchanged again hyperinflated with scattered tiny calcified granulomas bilaterally. Heart and mediastinal structures within normal limits. No new/acute findings.
[2020-11-15 09:13] VITALS: BP 140/94; PULSE 75; O2SAT 98
== END 2020-11-15 09:13 | disposition home or self-care (01) ==
LOC: ED 04:58
DX: R07.9 Chest pain, unspecified (principal); I10 Essential (primary) hypertension; F17.210 Nicotine dependence, cigarettes, uncomplicated
CPT/HCPCS: 36000; 36415; 71046; 80048; 80076; 83690; 84484; 85025; 93005; 93041; 99284